=== PATIENT | female | born 1980 | race Caucasian/White ===

== ENCOUNTER 2017-02-12 22:02 | Emergency (ER) | payer OTHER, BC ==
[2017-02-12 22:14] VITALS: BP 136/89; BMI 23.1
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
[2017-02-12] MEDS ORDERED: TORADOL 60 MG VIAL ONE (23:46)
[2017-02-12] MEDS ORDERED: TORADOL 60 MG VIAL IM ONE (23:53)
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
== END 2017-02-13 00:45 | disposition home or self-care (01) ==
LOC: ER 22:02
DX: S20.219A Contusion of unspecified front wall of thorax, initial encounter (principal); Z04.3 Encounter for examination and observation following other accident; V49.9XXA Car occupant (driver) (passenger) injured in unspecified traffic accident, initial encounter; Y92.9 Unspecified place or not applicable
CPT/HCPCS: 71020; 93005; 93010; 96372; 99282; J1885